=== PATIENT | male | born 1970 | race African-American/Black ===

== ENCOUNTER 2022-05-18 19:06 | Observation (INO) ==
[2022-05-18 19:35] LABS: Basophils % 0.3 % (0.0-0.8); Eosinophils # 0.8 10*3/uL (0.0-0.87); Hematocrit 43.3 VOL% (42.0-52.0); Hemoglobin 13.7 GM/DL (14.0-18.0); Immature Granulocytes % 0.2 %; Immature Granulocytes Absolute 0.02 #; Lymphocytes # 3.4 10*3/uL (1.4-4.0); Lymphocytes % 35.2 % (21.2-54.2); Mean Corpuscular HGB Conc 31.6 GM/DL (32-36); Mean Corpuscular Volume 85.6 FL (87-102); Mean Platelet Volume 10.8 FL (9.6-12.0); Monocytes # 0.6 10*3/uL (0.11-0.8); Monocytes % 6.4 % (1.7-12.7); Neutrophils % 49.9 % (38.7-73.9); Platelet Count 185 T/CUMM (130-400); Red Blood Count 5.06 MC/CUMM (3.8-5.5); Red Cell Distribution Width 13.4 % (9.3-17.3); White Blood Count 9.5 T/CUMM (4-12)
[2022-05-18 19:58] LABS: Alanine Aminotransferase 39 U/L (16-61); Albumin 3.7 G/DL (3.4-5.0); Alkaline Phosphatase 122 U/L (45-117); Aspartate Amino Transferase 23 U/L (0-37); Bilirubin,Total < 0.39 MG/DL (0.20-1.00); Blood Urea Nitrogen 16 MG/DL (7-18); Calcium 9.5 MG/DL (8.5-10.1); Carbon Dioxide 27 MMOL/L (21-32); Chloride 106 MMOL/L (98-107); Glucose 174 MG/DL (74-106); Osmolality,Calculated 279.7 MOS/KG (273-304); Potassium 4.4 MMOL/L (3.5-5.1); Sodium 138 MMOL/L (136-145); Total Protein 7.5 G/DL (6.4-8.2)
[2022-05-18] MEDS ORDERED: NITROGLYCERIN 2% OINT 1 INCH/GM PACK TOP STA (22:14)
[2022-05-18] MEDS ORDERED: ONDANSETRON 4 MG/2 ML VIAL IV STA (22:14)
[2022-05-18] MEDS ORDERED: ASPIRIN 325 MG TABLET PO STA (22:14)
[2022-05-18] MEDS ORDERED: ENOXAPARIN 100 MG/ML SYRINGE SUBCUT STA (22:14)
[2022-05-18] MEDS ORDERED: MORPHINE 2 MG/1 ML SYRINGE IV STA (22:14)
[2022-05-18] MEDS ORDERED: ENOXAPARIN 120 MG/0.8 ML SYRINGE SUBCUT ONE (22:48)
[2022-05-18] MEDS ORDERED: NITROGLYCERIN SL 0.4 MG TABLET SL PRN (23:14)
[2022-05-18] MEDS ORDERED: MORPHINE 2 MG/1 ML SYRINGE IV PRN (23:14)
[2022-05-18] MEDS ORDERED: GLUCAGON 1 MG VIAL IM PRN (23:14)
[2022-05-18] MEDS ORDERED: ONDANSETRON 4 MG/2 ML VIAL IV PRN (23:14)
[2022-05-18] MEDS ORDERED: ACETAMINOPHEN 325 MG TABLET PO PRN (23:14)
[2022-05-18] MEDS ORDERED: DEXTROSE 10% 250 ML BAG IV PRN (23:24)
[2022-05-19 05:10] LABS: Basophils % 0.3 % (0.0-0.8); Eosinophils # 0.6 10*3/uL (0.0-0.87); Eosinophils % 6.8 % (0.00-10.9); Hematocrit 40.9 VOL% (42.0-52.0); Hemoglobin 12.9 GM/DL (14.0-18.0); Immature Granulocytes % 0.2 %; Immature Granulocytes Absolute 0.02 #; Lymphocytes # 3.5 10*3/uL (1.4-4.0); Lymphocytes % 40.7 % (21.2-54.2); Mean Corpuscular HGB Conc 31.5 GM/DL (32-36); Mean Corpuscular Volume 85.2 FL (87-102); Mean Platelet Volume 11.5 FL (9.6-12.0); Monocytes # 0.6 10*3/uL (0.11-0.8); Monocytes % 6.4 % (1.7-12.7); Neutrophils % 45.6 % (38.7-73.9); Platelet Count 178 T/CUMM (130-400); Red Cell Distribution Width 13.5 % (9.3-17.3); White Blood Count 8.6 T/CUMM (4-12)
[2022-05-19 05:21] LABS: PT Patient Result 10.6 SECS (10.1-12.1); Partial Thromboplastin Time 36.1 SECS (23.7-32.9)
[2022-05-19 05:46] LABS: Calcium 8.8 MG/DL (8.5-10.1); Osmolality,Calculated 284.1 MOS/KG (273-304); Potassium 4.2 MMOL/L (3.5-5.1); Risk Ratio 5.94; Thyroid Stimulating Hormone 3.68 uIU/ml (0.358-3.74); VLDL Cholesterol 35.8 MG/DL
[2022-05-19] MEDS ORDERED: oxyCODONE/ACETAMINOPHEN 5-325 MG TABLET PO PRN (07:57)
[2022-05-19] MEDS ORDERED: MELATONIN 3 MG TABLET PO PRN (07:57)
[2022-05-19] MEDS: INSULIN REGULAR 100 UNIT/ML SUBCUT SCH ×4 (08:24→20:51)
[2022-05-19] MEDS ORDERED: ASPIRIN EC 325 MG TABLET PO SCH (09:00)
[2022-05-19] MEDS ORDERED: ATORVASTATIN 40 MG TABLET PO SCH (09:00)
[2022-05-19] MEDS ORDERED: diphenhydrAMINE CAP 50 MG CAPSULE PO ONE (13:07)
[2022-05-19] MEDS ORDERED: DIAZEPAM 5 MG TABLET PO ONE (13:07)
[2022-05-19] MEDS ORDERED: HEPARIN/NACL 0.9% 2 UNITS/ML 2,000 UNIT/1,000 ML BAG IV ONE (13:12)
[2022-05-19] MEDS: SODIUM CHLORIDE 0.45% 1,000 ML IV SCH ×2 (13:16→21:25)
[2022-05-19] MEDS ORDERED: HYDROmorphone 1 MG/1 ML SYRINGE ONE (13:37)
[2022-05-19] MEDS ORDERED: NITROGLYCERIN DRIP 50 MG/250 ML BOTTLE IV ONE (13:37)
[2022-05-19] MEDS ORDERED: VERAPAMIL 5 MG/2 ML VIAL ONE (13:37)
[2022-05-19] MEDS ORDERED: MIDAZOLAM 2 MG/2 ML VIAL ONE (13:37)
[2022-05-19] MEDS ORDERED: ENOXAPARIN 30 MG/0.3 ML SYRINGE ONE (13:47)
[2022-05-19] MEDS ORDERED: HEPARIN/NACL 0.9% 2 UNITS/ML 1,000 UNIT/500 ML BAG IV ONE (14:19)
[2022-05-19] MEDS ORDERED: TIROFIBAN 5,000 MCG/100 ML PREMIX IV SCH (15:00)
[2022-05-19] MEDS: TOPIRAMATE 25 MG TABLET PO SCH ×3 (15:08→21:17)
[2022-05-19] MEDS ORDERED: hydrALAZINE 20 MG/1 ML VIAL ONE (15:10)
[2022-05-19] MEDS ORDERED: TICAGRELOR 90 MG TABLET ONE (15:15)
[2022-05-19] MEDS: LOSARTAN 50 MG TABLET PO SCH (16:56)
[2022-05-19] MEDS: hydroCHLOROthiazide 12.5 MG CAPSULE PO SCH (16:56)
[2022-05-19] MEDS: ATORVASTATIN 80 MG TABLET PO SCH (16:56)
[2022-05-19] MEDS: PANTOPRAZOLE 40 MG TABLET PO SCH (16:56)
[2022-05-19] MEDS: buPROPion 100 MG TABLET PO SCH (17:04)
[2022-05-19] MEDS: PREGABALIN 75 MG CAPSULE PO SCH (21:17)
[2022-05-19] MEDS: TICAGRELOR 90 MG TABLET PO SCH (21:17)
[2022-05-19] MEDS: ENOXAPARIN 40 MG/0.4 ML SYRINGE SUBCUT SCH (21:18)
[2022-05-20 04:53] LABS: Basophils % 0.3 % (0.0-0.8); Eosinophils # 0.3 10*3/uL (0.0-0.87); Eosinophils % 3.3 % (0.00-10.9); Hematocrit 40.5 VOL% (42.0-52.0); Hemoglobin 12.8 GM/DL (14.0-18.0); Immature Granulocytes % 0.4 %; Immature Granulocytes Absolute 0.04 #; Lymphocytes # 1.9 10*3/uL (1.4-4.0); Lymphocytes % 18.5 % (21.2-54.2); Mean Corpuscular HGB Conc 31.6 GM/DL (32-36); Mean Corpuscular Volume 85.1 FL (87-102); Monocytes # 0.7 10*3/uL (0.11-0.8); Monocytes % 6.7 % (1.7-12.7); Neutrophils % 70.8 % (38.7-73.9); Platelet Count 176 T/CUMM (130-400); Red Blood Count 4.76 MC/CUMM (3.8-5.5); Red Cell Distribution Width 13.2 % (9.3-17.3); White Blood Count 10.2 T/CUMM (4-12)
[2022-05-20 05:10] LABS: Calcium 8.8 MG/DL (8.5-10.1); Osmolality,Calculated 278.7 MOS/KG (273-304); Potassium 3.7 MMOL/L (3.5-5.1)
[2022-05-20] MEDS: SODIUM CHLORIDE 0.45% 1,000 ML IV SCH (05:27)
[2022-05-20] MEDS: ASPIRIN EC 81 MG TABLET PO SCH (09:02)
[2022-05-20] MEDS: LOSARTAN 50 MG TABLET PO SCH (09:02)
[2022-05-20] MEDS: TICAGRELOR 90 MG TABLET PO SCH ×2 (09:03→20:40)
[2022-05-20] MEDS: TOPIRAMATE 25 MG TABLET PO SCH ×3 (09:03→20:40)
[2022-05-20] MEDS: hydroCHLOROthiazide 12.5 MG CAPSULE PO SCH (09:03)
[2022-05-20] MEDS: PREGABALIN 75 MG CAPSULE PO SCH (09:03)
[2022-05-20] MEDS: buPROPion 100 MG TABLET PO SCH (09:03)
[2022-05-20] MEDS: PANTOPRAZOLE 40 MG TABLET PO SCH (09:03)
[2022-05-20] MEDS: ATORVASTATIN 80 MG TABLET PO SCH (09:03)
[2022-05-20] MEDS ORDERED: MAGNESIUM HYDROXIDE SUSP 30 ML UDCUP PO PRN (09:07)
[2022-05-20] MEDS: INSULIN REGULAR 100 UNIT/ML SUBCUT SCH ×4 (09:08→23:53)
[2022-05-20] MEDS: ENOXAPARIN 40 MG/0.4 ML SYRINGE SUBCUT SCH (20:40)
[2022-05-20] MEDS ORDERED: ZALEPLON 5 MG CAPSULE PO ONE (21:00)
[2022-05-20] MEDS ORDERED: CLOPIDOGREL 75 MG TABLET PO STA (21:35)
[2022-05-21 06:21] LABS: Basophils % 0.2 % (0.0-0.8); Eosinophils # 0.3 10*3/uL (0.0-0.87); Eosinophils % 2.9 % (0.00-10.9); Hematocrit 43.4 VOL% (42.0-52.0); Hemoglobin 13.8 GM/DL (14.0-18.0); Immature Granulocytes % 0.3 %; Immature Granulocytes Absolute 0.03 #; Lymphocytes # 1.7 10*3/uL (1.4-4.0); Lymphocytes % 18.3 % (21.2-54.2); Mean Corpuscular HGB Conc 31.8 GM/DL (32-36); Mean Corpuscular Volume 84.3 FL (87-102); Mean Platelet Volume 11.4 FL (9.6-12.0); Monocytes # 0.8 10*3/uL (0.11-0.8); Neutrophils % 69.3 % (38.7-73.9); Platelet Count 197 T/CUMM (130-400); Red Blood Count 5.15 MC/CUMM (3.8-5.5); Red Cell Distribution Width 13.5 % (9.3-17.3); White Blood Count 9.2 T/CUMM (4-12)
[2022-05-21 06:44] LABS: Calcium 9.2 MG/DL (8.5-10.1); Osmolality,Calculated 282.4 MOS/KG (273-304); Potassium 4.2 MMOL/L (3.5-5.1)
[2022-05-21] MEDS: INSULIN REGULAR 100 UNIT/ML SUBCUT SCH (07:25)
[2022-05-21] MEDS: buPROPion 100 MG TABLET PO SCH (09:11)
[2022-05-21] MEDS: ATORVASTATIN 80 MG TABLET PO SCH (09:11)
[2022-05-21] MEDS: hydroCHLOROthiazide 12.5 MG CAPSULE PO SCH (09:11)
[2022-05-21] MEDS: PREGABALIN 75 MG CAPSULE PO SCH (09:11)
[2022-05-21] MEDS: PANTOPRAZOLE 40 MG TABLET PO SCH (09:11)
[2022-05-21] MEDS: LOSARTAN 50 MG TABLET PO SCH (09:11)
[2022-05-21] MEDS: TOPIRAMATE 25 MG TABLET PO SCH (09:11)
[2022-05-21] MEDS: ASPIRIN EC 81 MG TABLET PO SCH (09:11)
[2022-05-21] MEDS ORDERED: CLOPIDOGREL 75 MG TABLET PO SCH (09:30)
[2022-05-21 10:06] VITALS: BP 114/78
== END 2022-05-21 11:40 | disposition home or self-care (01) ==
LOC: N.ED 19:06 → N.TELES 19:06 → N.2W 05-19 09:40 → N.TELEN 05-19 15:23
PROVIDERS: ADMIT Family Medicine; ATTEND Family Medicine
PROC: CLCCHCL (ICD-10-PCS; 2022-05-19 14:15)